=== PATIENT | female | born 1935 | race Caucasian/White ===

== ENCOUNTER → 2020-07-12 | Emergency (ER) | payer MEDICARE, OTHER ==
[~2020-07-12] VITALS: Ht 160 cm; Wt 53.1 kg
[~2020-07-12] MED LIST: AML5T PO; CALC-386 OR; CHOLDRO3 OR; CLOP75TA41 PO; LEVO125T7 PO; LOS50T PO; LOVA20TA4 PO; MELO7.5S PO; MULTTAB99 PO; POTA10IN
[2020-07-12 10:47] LABS: Basophils # (auto) 0.1 10 ^3/uL (0-0.2); Basophils % (auto) 0.7 % (0.0-2.0); Eosinophils # (auto) 0.1 10 ^3/uL (0-0.8); Eosinophils % (auto) 0.6 % (0.0-7.0); Hematocrit 39.1 % (36.0-46.0); Hemoglobin 13.3 g/dL (12.2-16.2); Lymphocytes # (auto) 0.9 10 ^3/uL (0.4-5.4); Lymphocytes % (auto) 11.1 % (10.0-50.0); Mean Corpuscular Hemoglobin 32.2 pg (28.0-32.0); Mean Corpuscular Volume 94.7 fL (80.0-100.0); Monocytes # (auto) 0.5 10 ^3/uL (0-1.3); Monocytes % (auto) 6.3 % (0.0-12.0); Neutrophils # (auto) 6.8 10 ^3/uL (1.6-8.6); Neutrophils % (auto) 81.3 % (37.0-80.0); Platelet Count (auto) 313 10^3/uL (140-450); Red Blood Cells 4.12 10^6/uL (4.0-5.20); Red Cell Distribution Width 13.5 % (11.8-14.3); White Blood Cell 8.4 10^3/uL (4.4-10.8)
[2020-07-12 10:57] LABS: INR 0.94 (0.9-1.15); Partial Thromboplastin Time 24.9 sec (23.0-31.2)
[2020-07-12 11:07] LABS: Potassium 3.8 mmol/L (3.5-5.1)
[2020-07-12 11:18] LABS: Albumin 3.5 g/dL (3.4-5.0); BUN/Creatinine Ratio 53.5; Bilirubin, Total 0.8 mg/dL (0.2-1.0); Calcium 9.4 mg/dL (8.5-10.1); Total Protein 6.3 g/dL (6.4-8.2)
[2020-07-12 15:26] LABS: Urine Bacteria NONE SEEN /hpf (None Seen); Urine Blood 2+ /uL (Negative); Urine Mucus FEW (None Seen); Urine Specific Gravity 1.019 (1.001-1.035); Urine WBC 10 /hpf (0 - 5)
[2020-07-12 15:40] VITALS: BP 139/83
== END | disposition home or self-care (01) ==
LOC: ER 09:28
DX: N93.9 Abnormal uterine and vaginal bleeding, unspecified (principal); I10 Essential (primary) hypertension; N39.0 Urinary tract infection, site not specified; Z88.0 Allergy status to penicillin; Z88.2 Allergy status to sulfonamides; Z79.899 Other long term (current) drug therapy
CPT/HCPCS: 36415; 76856; 80053; 81001; 85025; 85610; 85730